=== PATIENT | female | born 1975 | race African-American/Black ===

== ENCOUNTER 2023-03-14 09:09 | Emergency (ER) | payer OTHER, SELFPAY ==
--- NOTE | ~2023-03-14 | US_ITS ---
EXAMINATION: US PELVIS CLINICAL INFORMATION: Right lower quadrant pelvic pain COMPARISON: None available. TECHNIQUE: Ultrasound of the pelvis is performed using both transabdominal and transvaginal transducers along with Doppler. Transvaginal imaging is performed due to inadequate visualization transabdominally. FINDINGS: Uterus: The uterus is anteverted and measures 13.2 x 4.6 x 6.7 cm. Uterus appears normal The double wall endometrial thickness is 15 mm. The uterus is smooth in contour and has normal myometrial echogenicity. No visible fibroid. Adnexa: Both ovaries are visualized. There is normal color flow to the adnexa. There is no ovarian torsion. There is no pelvic ascites or fluid collection. Right ovary measures 4.5 x 4.1 x 3.6 cm. There is an anechoic simple cyst measuring 3.8 x 1.1 x 3.1 cm Left ovary measures 5.4 x 3.3 x 4.2 cm. There is a anechoic simple cyst measuring 4.6 x 2.7 x 3.9 US/US pelvic ovarian doppler IMPRESSION: Bilateral simple ovarian cysts. No acute process. Findings are overwhelmingly likely to represent a benign functional cyst. No followup imaging recommended.
--- NOTE | ~2023-03-14 | CT_ITS ---
EXAMINATION: CT ABDOMEN AND PELVIS WITH CONTRAST CLINICAL INFORMATION: Right lower quadrant and right flank pain. COMPARISON: None available. TECHNIQUE: Multidetector volumetric images were obtained from the superior aspect of the liver through the pubic symphysis following administration 85 mL of Omnipaque 350 intravenous contrast. Sagittal and coronal reformatted images were obtained on the technologist's workstation. Oral contrast: No This CT examination was performed using dose optimization techniques as appropriate, variously including the following: *Automated exposure control *Adjustment of mA and/or kV according to patient size (this includes techniques or standardized protocols for targeted exams where dose is matched to indication/reason for exam; i.e. extremities or head) *Use of iterative reconstruction technique DLP: 545 mGy-cm FINDINGS: LUNG BASES: The visualized lung bases are unremarkable. LIVER, GALLBLADDER, AND BILIARY TREE: The liver is normal in size and enhances uniformly. A transient hepatic perfusion defect is present to the right of the falciform ligament in segment IVb. There is a less than 5 mm subcapsular hypodensity in the right lobe (series 3 image 25) too small to characterize further. A similar tiny lesion noted in segment 3. The gallbladder is contracted and abnormally thick-walled. There may be pericholecystic fat stranding. No definite cholelithiasis. No biliary ductal dilation. Differential considerations include cholecystitis, adenomyosis or other gallbladder wall processes. Recommend right upper quadrant ultrasound further characterize. PANCREAS: Uniform pancreatic enhancement without mass or ductal dilation. SPLEEN: Normal-sized spleen without focal lesion. ADRENAL GLANDS: No adrenal mass. KIDNEYS AND URETERS: Symmetric renal function. No hydronephrosis. No hydroureter. No perinephric fat stranding. Renal cysts noted bilaterally. No follow-up indicated. BLADDER: The bladder is largely empty. GASTROINTESTINAL TRACT: The small and large bowel are unremarkable. The appendix is unremarkable. No free air or free fluid. ABDOMINAL WALL: No significant hernia is appreciated. LYMPH NODES: Normal. VASCULAR: Unremarkable. PELVIC VISCERA: There are complicated adnexal cysts bilaterally. These most likely represent follicular cysts measuring less than 5 cm bilaterally. No solid mass seen. No CT evidence of torsion. Clinical correlation is required in this regard. The uterus is normally anteverted. The endometrial cavity is grossly normal. No pelvic free fluid or adenopathy. OSSEOUS STRUCTURES: Degenerative changes in the spine. No fracture or compression deformity. CT/CT abdomen pelvis w IV con IMPRESSION: 1. No renal calculi or hydronephrosis. 2. Bilateral adnexal cysts. No acute inflammatory changes. 3. Abnormally contracted and thickened irregular gallbladder wall. Possible pericholecystic fat stranding. Cholecystitis versus adenomyosis versus other. Recommend right upper quadrant ultrasound. Fleischner guidelines were followed.
--- NOTE | ~2023-03-14 | US_ITS ---
EXAMINATION: US ABDOMEN LIMITED CLINICAL INFORMATION: Right-sided abdominal pain. COMPARISON: CT scan of the abdomen and pelvis performed today TECHNIQUE: Real-time imaging of the right upper quadrant abdominal viscera. FINDINGS: LIVER: Visualized portions unremarkable. GALLBLADDER: Mildly distended containing gallstones measuring up to 1.3 cm. Multiple smaller gallstones are seen. There is mild mural thickening without hyperemia with Doppler interrogation. A few mural based comet tail artifact are noted. No pericholecystic fluid. COMMON BILE DUCT: Normal in caliber measuring 0.3 cm in diameter. FREE FLUID: None. US/US abdomen limited IMPRESSION: Mildly distended gallbladder demonstrated cholelithiasis without overt evidence for acute cholecystitis. If symptoms persist or worsen, short-term repeat right upper quadrant ultrasound is recommended as indicated to assess for change.
--- NOTE | ~2023-03-14 | US_ITS ---
EXAMINATION: US PELVIS CLINICAL INFORMATION: Right lower quadrant pelvic pain COMPARISON: None available. TECHNIQUE: Ultrasound of the pelvis is performed using both transabdominal and transvaginal transducers along with Doppler. Transvaginal imaging is performed due to inadequate visualization transabdominally. FINDINGS: Uterus: The uterus is anteverted and measures 13.2 x 4.6 x 6.7 cm. Uterus appears normal The double wall endometrial thickness is 15 mm. The uterus is smooth in contour and has normal myometrial echogenicity. No visible fibroid. Adnexa: Both ovaries are visualized. There is normal color flow to the adnexa. There is no ovarian torsion. There is no pelvic ascites or fluid collection. Right ovary measures 4.5 x 4.1 x 3.6 cm. There is an anechoic simple cyst measuring 3.8 x 1.1 x 3.1 cm Left ovary measures 5.4 x 3.3 x 4.2 cm. There is a anechoic simple cyst measuring 4.6 x 2.7 x 3.9 US/US pelvic and transvaginal IMPRESSION: Bilateral simple ovarian cysts. No acute process. Findings are overwhelmingly likely to represent a benign functional cyst. No followup imaging recommended.
[2023-03-14 09:25] VITALS: BP 133/69; PULSE 76; RESP 16; TEMP 36.2; O2SAT 100; BMI 29.8
[2023-03-14 09:37] LABS: Basophils Absolute Auto 0.1 X10*3/uL (0.0-0.2); Basophils Percent Auto 0.5 % (0-2); Eosinophils Absolute Auto 0.1 X10*3/uL (0.0-0.4); Eosinophils Percent Auto 0.7 % (0-4); Hematocrit 33.9 % (37.0-47.0); Hemoglobin 10.9 g/dl (12.0-16.0); Imm Gran Abs Auto 0.03 X10*3/uL (0.00-0.03); Imm Gran Pct Auto 0.3 % (0.0-0.4); Lymphocytes Absolute Auto 1.3 X10*3/uL (1.2-4.9); Lymphocytes Percent Auto 14.2 % (20-40); MANUAL DIFF FLAG NO; Mean Corpuscular HGB Conc 32.2 g/dl (31.0-35.0); Mean Corpuscular Hemoglobin 22.9 pg (27.0-33.0); Mean Corpuscular Volume 71.4 fL (80.0-98.0); Monocytes Absolute Auto 0.7 X10*3/uL (0.1-1.2); Monocytes Percent Auto 7.4 % (2-11); Neutrophils Absolute Auto 7.1 x10*3/uL (2.0-8.3); Neutrophils Percent Auto 76.9 % (45-73); Platelet Count 282 X10*3/uL (160-400); Red Blood Count 4.75 X10*6/uL (4.20-5.50); Red Cell Distribution Width 14.4 % (11.0-16.0); White Blood Count 9.2 X10*3/uL (4.8-10.8)
[2023-03-14 09:55] LABS: Alanine Aminotransferase 24 U/L (0-31); Albumin Level 4.2 g/dL (3.5-5.0); Alkaline Phosphatase 72 U/L (39-117); Anion Gap 9 (12-20); Aspartate Amino Transferase 34 U/L (5-31); Bilirubin Total 1.6 mg/dL (0.0-1.0); Blood Urea Nitrogen 10 mg/dL (9-16); Calcium 9.7 mg/dL (8.4-10.2); Carbon Dioxide 28 mmol/L (22-29); Chloride 105 mmol/L (96-108); Creatinine Clr Calc Pharmacy 88.5; Estimated Glomerular Filt Rate > 60; Glucose Random 94 mg/dL (60-115); Potassium 3.8 mmol/L (3.3-5.1); Sodium 138 mmol/L (135-145); Total Protein 6.9 g/dL (6.5-8.0)
--- OUTSIDE RECORDS SUMMARY | 2023-03-14 09:55 | XMS_ITS | Continuity of Care Document ---
Author Name Unknown Organization [facility] ter Address [address] [place] [id number]- Care Team Providers Care Traffic Checker Name Role Phone Jon GONZALEZ, Pb SAMUELS Primary Care Physician Encounter [facility] [place] Date(s): 10/22/20 - 10/22/[address] [id number]- Discharge Disposition: A-D/C Home Attending Physician: Sixto Rodriguez MD Admitting Physician: Sixto Rodriguez MD Referring Physician: Sixto Rodriguez MD Allergies, Adverse Reactions, Alerts Substance Reaction Severity Status NKA Active Medications acetaminophen-oxyCODONE 325 mg-5 mg oral tablet 1, tablet, By Mouth, Every 6 hours, for 7 days, # 28 tablet, Refills 0, Tot. Refills 0, Acute, 10/29/20 19:12:00 EST, 10/22/20 19:12:00 EST, Route to Pharmacy Electronically, [id number], Partial fill upon patient request if the prescr... Start Date: 10/22/20 Stop Date: 10/29/20 Status: Ordered FENTanyl Inj 50 mcg, Injection, IV Push Slowly, Every 5 minutes for 4 doses/times, in PACU ONLY, Hold for: RR less than 8 or over-sedation, PRN for Pain , Severe, Repeat until Pain Score is less than or equal to 2, Routine, 10/22/20 14:23:00 EST, Stop date Limited... Start Date: 10/22/20 Status: Ordered Ferrous Sulfate EC 325 mg, By Mouth, 3 x a week, Refills 0, Maintenance, 10/10/20 15:46:00 EST, Partial fill upon patient request if the prescription is for a schedule II opioid drug. Start Date: 10/10/20 Status: Ordered Vitamin D3 = 50,000 units, By Mouth, 2x week Thursday and Thu, 0 Refills, Maintenance, 10/10/20 15:46:00 EST, Partial fill upon patient request if the prescription is for a schedule II opioid drug. Start Date: 10/10/20 Status: Ordered Vital Signs Most recent to oldest [Reference Range]: 1 2 3 Height 162.56 cm (10/22/20 1:36 PM) 162.56 cm (10/10/20 3:48 PM) Weight 88.5 kg (10/22/20 1:36 PM) 85 kg (10/10/20 3:48 PM) Oxygen Saturation [94-100 %] 100 % (10/22/20 4:00 PM) 100 % (10/22/20 3:45 PM) 100 % (10/22/20 3:30 PM) Pulse Rate [55-90 bpm] 96 bpm *H* (10/22/20 1:36 PM) Body Mass Index [18.5-24.99] 33.49 *>HHI* (10/22/20 1:36 PM) 32.17 *>HHI* (10/10/20 3:48 PM) Blood Pressure [90-138/55-84 mm Hg] 139/76mm Hg *H* (10/22/20 4:00 PM) 123/67mm Hg (10/22/20 3:45 PM) 126/67mm Hg (10/22/20 3:30 PM) Respiratory Rate [16-30 br/min] 16 br/min (10/22/20 4:00 PM) 13 br/min *L* (10/22/20 3:45 PM) 14 br/min *L* (10/22/20 3:44 PM) Temperature [96.8-100.4 DegF] 98.0 DegF (10/22/20 4:00 PM) 97.9 DegF (10/22/20 3:00 PM) 98.0 DegF (10/22/20 1:36 PM) Liters per Minute 2 L/min (10/22/20 3:30 PM) 5 L/min (10/22/20 3:00 PM) Mode of Delivery (Oxygen) Room air (10/22/20 5:00 PM) Room air (10/22/20 4:30 PM) Room air (10/22/20 3:45 PM) Blood pressure sites Arm, right (10/22/20 3:00 PM) Arm, right (10/22/20 1:36 PM) Temperature Route Temporal (10/22/20 4:00 PM) Temporal (10/22/20 3:00 PM) Femoral (10/22/20 1:36 PM) Dry Weight 88.5 kg (10/22/20 1:36 PM) 85 kg (10/10/20 3:48 PM) Weight Obtained Via Standing scale (10/22/20 1:36 PM) Patient/family stated (10/10/20 3:48 PM) Dry Weight Obtained Via Standing scale (10/22/20 1:36 PM) Patient/family stated (10/10/20 3:48 PM)
--- OUTSIDE RECORDS SUMMARY | 2023-03-14 09:55 | XMS_ITS | Continuity of Care Document ---
Author Name Unknown Organization [facility] ter Address [address] [place] [id number]- Care Team Providers Care Dealer Accounts Investigator Name Role Phone Jon GONZALEZ, Pb SAMUELS Primary Care Physician [place] [facility] [place] 04/08/[address] [id number]- [facility] Encounter Diagnosis Lower GI bleed(Final) - 04/08/20 Discharge Disposition: A-D/C Home Attending Physician: Melania Holland MD Admitting Physician: Melania Holland MD Referring Physician: Not on Staff, Referring MD Allergies, Adverse Reactions, Alerts Substance Reaction Severity Status NKA Active Vital Signs Most recent to oldest [Reference Range]: 1 2 3 Oxygen Saturation [94-100 %] 100 % (04/08/20 11:04 PM) 100 % (04/08/20 10:10 PM) 100 % (04/08/20 8:22 PM) Pulse Rate [55-90 bpm] 78 bpm (04/08/20 11:04 PM) 78 bpm (04/08/20 10:10 PM) 76 bpm (04/08/20 8:22 PM) Blood Pressure [90-138/55-84 mm Hg] 134/70mm Hg (04/08/20 11:04 PM) 130/68mm Hg (04/08/20 10:10 PM) 130/63mm Hg (04/08/20 8:22 PM) Respiratory Rate [16-30 br/min] 18 br/min (04/08/20 11:04 PM) 17 br/min (04/08/20 10:10 PM) 18 br/min (04/08/20 8:22 PM) Temperature [96.8-100.4 DegF] 98.5 DegF (04/08/20 11:04 PM) 98.6 DegF (04/08/20 8:22 PM) 98.0 DegF (04/08/20 8:10 PM) Mode of Delivery (Oxygen) Room air (04/08/20 11:04 PM) Room air (04/08/20 10:10 PM) Room air (04/08/20 8:22 PM) Blood pressure sites Arm, left (04/08/20 11:04 PM) Arm, left (04/08/20 10:10 PM) Arm, left (04/08/20 8:22 PM) Temperature Route Oral (04/08/20 11:04 PM) Oral (04/08/20 8:22 PM) Oral (04/08/20 8:10 PM)
[2023-03-14 10:07] VITALS: BP 134/58; PULSE 72; RESP 16; O2SAT 100
--- NOTE | 2023-03-14 11:36 | ED.ABDPAIN ---
HPI - Abdominal Pain General Chief Complaint: Abdominal Pain Stated Complaint: N/V, lower abd pain wrapping to back, headache Time Seen by Provider: 03/14/23 09:39 Source: patient Mode of arrival: ambulatory Limitations: no limitations History of Present Illness HPI narrative: 47-year-old female who presents emergency department for evaluation of abdominal pain x2 days. 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 The pain is been constant since onset. The pain is a ?nagging ?pain which is 5/10 at its worst. She had 3 episodes of emesis and did vomit a small amount of blood. She states that she has had a headache as well since onset of the pain she took ibuprofen with only mild relief. Patient states that she had similar pain in the past with an ruptured ovarian cyst and food poisoning. She denied fever but did have chills since onset of the pain. She denied rhinorrhea, sore throat, cough, chest pain, shortness of breath. She states she had 1 loose diarrheal stool with no blood in the stool. Her last bowel movement was yesterday at 10:30. Related Data Allergies Allergy/AdvReac Type Severity Reaction Status Date / Time No Known Allergies Allergy Verified 03/14/23 09:24 Review of Systems Review of Systems Yes all other systems are reviewed and are negative [facility] Past Medical History [facility] Narrative: Past medical history: None. Past surgical history: Bilateral tubal ligation social history: She denies tobacco, alcohol and drug use. Social History Social History Alcohol intake: never Smoked in Last 30 Days: No Use of substances other than those prescribed or required for medical reasons: No Advance Directives: No Advance Directives Information Provided: Yes Physical Exam ED Vital Signs: Vital Signs - 24 hr 03/14/23 09:25 03/14/23 10:07 03/14/23 13:01 Temperature 97.1 F Pulse Rate 76 72 75 Respiratory Rate 16 16 14 Blood Pressure 133/69 134/58 L 134/58 L Pulse Oximetry 100 100 100 Oxygen Delivery Method Room Air Room Air Room Air 03/14/23 15:26 Temperature 98.7 F Pulse Rate 81 Respiratory Rate 18 Blood Pressure 139/66 Pulse Oximetry 100 Oxygen Delivery Method Room Air BMI result Body Mass Index 29.8 Const General: cooperative and no acute distress Orientation/consciousness: oriented to person and oriented to place Limitations: no limitations HENMT Head: Yes normal to inspection, Yes normocephalic and Yes atraumatic Ears: external ears normal General nose exam: Normal external nose present Face and sinus: Yes normal facial exam Mouth: Normal oral and palatal mucosa present Throat: Yes posterior oropharynx normal Eyes General: appearance normal, both eyes and all related structures Pupils: Equal, round and reactive pupils present Neck Neck: Yes normal visual inspection, Yes no lymphadenopathy, Yes trachea midline and Yes supple Chest Chest palpation & inspection: normal inspection of the chest and normal palpation of entire chest wall Resp Effort & Inspection: normal respiratory effort and able to speak in complete sentences Auscultation: clear to auscultation bilaterally Cardio Rate: regular rate Rhythm: regular rhythm Heart sounds: S1 normal heart sound present, S2 normal heart sound present and no murmurs GI Inspection: Yes normal to inspection Palpation (GI): Soft to palpation, Tenderness to palpation present (GI) in the RLQ (Moderate to severe) and suprapubicly (Mild) and no guarding Auscultation: normal bowel sounds General: Yes no CVA tenderness Back/Spine/Pelvis Back: no CVA tenderness Skin General skin exam: no rashes or lesions noted Neuro General: oriented to person and oriented to place Cranial nerves: Yes CN's II-XII intact bilaterally and Yes Equal, round and reactive pupils present Cognition (Neuro): normal cognition Motor exam (neuro): 5/5 motor strength present throughout Extrem General: Yes normal to inspection Psych Appearance: grossly normal Speech and movement: Normal speech and movement present Affect: normal affect Attitude: cooperative Medical Decision Making Medical Decision Making [facility] Narrative: 47-year-old female who presents emergency department for evaluation of right lower quadrant and right flank pain that came on suddenly yesterday at 10:30 while she was at work. Pain is been constant in 03/04 since onset, not relieved by ibuprofen. Patient had 3 episodes of emesis and 1 diarrheal stool yesterday at 10:30. The patient vital signs were normal. The patient's physical exam did reveal right lower quadrant tenderness with no CVA tenderness. Laboratory evaluation was ordered including CBC, CMP, lipase, urinalysis. I ordered Toradol 15 mg IV and Zofran 4 mg IV. Patient will also be treated with normal saline x1 L. CT scan of the abdomen pelvis with IV contrast will be obtained. 1148: Laboratory evaluation interpreted by me as follows: Microcytic anemia with an H&H of 10 and 33.9 with MCV of 71-patient has known iron deficient anemia. Elevated AST 34. Elevated bilirubin 1.6. Urinalysis trace blood, positive leukocyte esterase. Microscopic 6-10 RBCs, 21-50 WBCs greater than 20 squamous cells-this is a non clean catch specimen. CT scan of the abdomen pelvis with IV contrast revealed no renal calculi or hydronephrosis, 5 natural adnexal cyst, contracted thickened gallbladder with pericholecystic fat stranding. Given the CT scan findings I did order a pelvic duplex ultrasound to rule out torsion and right upper quadrant ultrasound. Patient's pain is significantly better after the above treatment. 1704: The patient still remains pain-free. Patient's ultrasound of her pelvis did not reveal ovarian torsion or significant cysts. The patient's ultrasound of the gallbladder did reveal gallstones but no evidence for acute cholecystitis. I did discuss this with the patient. The patient was discharged home and advised to take Tylenol ibuprofen for pain and return emergency department for symptoms got worse or she developed new symptoms that were concerning to her. Differential Diagnosis Differential diagnosis includes was not limited to appendicitis, pancreatitis, diverticulitis, renal colic, ureteral stone, hemorrhagic ovarian cyst, rupture ovarian cyst, ovarian torsion. Admission/Observation Consideration of admission/observation: Escalation of care including admission/observation considered Lab Data MDM Lab Attestation statement: I reviewed the patient's lab results. 03/14/23 09:31 03/14/23 09:31 Labs: Lab Results 03/14/23 03/14/23 03/14/23 Range/Units 09:31 09:31 12:13 WBC 9.2 (4.8-10.8) X10*3/uL RBC 4.75 (4.20-5.50) X10*6/uL Hgb 10.9 L (12.0-16.0) g/dl Hct 33.9 L (37.0-47.0) % MCV 71.4 L (80.0-98.0) fL MCH 22.9 L (27.0-33.0) pg MCHC 32.2 (31.0-35.0) g/dl RDW 14.4 (11.0-16.0) % Plt Count 282 (160-400) X10*3/uL MPV 11.0 (9.4-12.3) fL Immature Gran % (Auto) 0.3 (0.0-0.4) % Neut % (Auto) 76.9 H (45-73) % Lymph % (Auto) 14.2 L (20-40) % [place] % (Auto) 7.4 (2-11) % Eos % (Auto) 0.7 (0-4) % Baso % (Auto) 0.5 (0-2) % Lymph # (Auto) 1.3 (1.2-4.9) X10*3/uL [place] # (Auto) 0.7 (0.1-1.2) X10*3/uL Eos # (Auto) 0.1 (0.0-0.4) X10*3/uL Baso # (Auto) 0.1 (0.0-0.2) X10*3/uL Abs Immat Gran (auto) 0.03 (0.00-0.03) X10*3/uL Absolute Neuts (auto) 7.1 (2.0-8.3) x10*3/uL Absolute Nucleated RBC 0.000 (0.0-0.012) X10*3/uL Nucleated RBC % (auto) 0.0 (0.0-0.2) /100WBC Sodium 138 (135-145) mmol/L Potassium 3.8 (3.3-5.1) mmol/L Chloride 105 (96-108) mmol/L Carbon Dioxide 28 (22-29) mmol/L Anion Gap 9 L (12-20) BUN 10 (9-16) mg/dL Creatinine 0.78 (0.5-1.4) mg/dL Estim Creat Clear Calc 88.5 Estimated GFR > 60 Random Glucose 94 (60-115) mg/dL Calcium 9.7 (8.4-10.2) mg/dL Total Bilirubin 1.6 H (0.0-1.0) mg/dL AST 34 H (5-31) U/L ALT 24 (0-31) U/L Alkaline Phosphatase 72 (39-117) U/L Total Protein 6.9 (6.5-8.0) g/dL Albumin 4.2 (3.5-5.0) g/dL Lipase 19 (8-78) U/L Urine Color Yellow Urine Appearance Cloudy Urine pH 5.5 (5.0-9.0) Ur Specific [place] 1.020 (1.005-1.025) Urine Protein Trace (Neg-Trace) mg/dL Urine Glucose (UA) Negative (Negative) mg/dL Urine Ketones 15 (Negative) mg/dL Urine Blood Trace H (Negative) Urine Nitrite Negative (Negative) Ur Leukocyte Esterase Small (1+) H (Negative) Urine RBC 6-10 H (0-2) /HPF Urine WBC 21-50 H (0-5) /HPF Ur Squamous Epith Cells >20 (0-2) /HPF Urine Bacteria 4+ (None Seen) Hyaline Casts 0-2 (0-2) /LPF Independent Interpretation I performed an independent interpretation of an: Ultrasound and CT Scan Interpretation: US pelvic and transvaginal IMPRESSION: Bilateral simple ovarian cysts. No acute process. Findings are overwhelmingly likely to represent a benign functional cyst. No followup imaging recommended. Dictated By:Berny West MD US abdomen limited IMPRESSION: Mildly distended gallbladder demonstrated cholelithiasis without overt evidence for acute cholecystitis. If symptoms persist or worsen, short-term repeat right upper quadrant ultrasound is recommended as indicated to assess for change. Dictated By:Pierre Callejas MD CT abdomen pelvis w IV con IMPRESSION: 1. No renal calculi or hydronephrosis. 2. Bilateral adnexal cysts. No acute inflammatory changes. 3. Abnormally contracted and thickened irregular gallbladder wall. Possible pericholecystic fat stranding. Cholecystitis versus adenomyosis versus other. Recommend right upper quadrant ultrasound. Fleischner guidelines were followed. Dictated By:Gustabo Lara MD Radiology Impression Discussion of test interpretation with radiology: I have reviewed the radiologist's reading. Radiologist Impression: CT abdomen pelvis w IV con IMPRESSION: 1. No renal calculi or hydronephrosis. 2. Bilateral adnexal cysts. No acute inflammatory changes. 3. Abnormally contracted and thickened irregular gallbladder wall. Possible pericholecystic fat stranding. Cholecystitis versus adenomyosis versus other. Recommend right upper quadrant ultrasound. Fleischner guidelines were followed. Dictated By:Gustabo Lara MD Medications Administered Discontinued Medications Generic Name Dose Route Start Last Admin Trade Name Freq PRN Reason Stop Dose Admin Sodium Chloride 1,000 mls @ 999 mls/hr 03/14/23 11:37 03/14/23 14:06 Ns IV 03/14/23 12:37 Infused .Q1H1M STA Infusion Iohexol 100 ml 03/14/23 12:42 03/14/23 12:43 Iohexol 350 Mg/Ml 100 Ml Infus..Btl IV 03/14/23 12:43 85 ml ONCE ONE Administration Ketorolac Tromethamine 15 mg 03/14/23 11:37 03/14/23 12:08 Ketorolac Tromethamine 15 Mg/Ml Vial IVPUSH 03/14/23 11:38 15 mg ONCE STA Administration Ondansetron HCl 4 mg 03/14/23 11:37 03/14/23 12:09 Ondansetron Hcl 4 Mg/2 Ml Vial IVPUSH 03/14/23 11:38 4 mg ONCE ONE Administration Discharge Plan Discharge Clinical Impression: Right flank pain Abdominal pain Qualifiers: Abdominal location: right lower quadrant Qualified Code(s): R10.31 - Right lower quadrant pain Patient Disposition: Home, Self-Care Instructions: Abdominal Pain (ED) Additional Instructions: Your blood work was unremarkable except for mild anemia. Your urinalysis was contaminated with skin cells but your asymptomatic and I do not think that you have a urinary tract infection is the cause of your symptoms. The CT scan of your abdomen pelvis did reveal small ovarian cysts and a contracted gallbladder. The ultrasounds however revealed no significant ovarian cysts and gallstones in your gallbladder with no inflammation of your gallbladder. At this time, I do not have a clear cause for your pain. If you developed a rash in the area where the pain then you should talk to your doctor about shingles or return to the emergency department to be evaluated for shingles. Take ibuprofen 200 mg pills, 2 pills every 6 hours as needed for pain. Take Tylenol (acetaminophen) 500 mg pills, 2 pills every 6 hours as needed for pain. Follow-up with your doctor in 2 days. Please return to the emergency department if your symptoms get worse or if you develop any symptoms that are concerning to you.
[2023-03-14] MEDS: 0.9 % Sodium Chloride 1,000 ML 999 ML IV (12:01)
[2023-03-14] MEDS: Ketorolac Tromethamine 15 MG/ML VIAL IVPUSH (12:08)
[2023-03-14] MEDS: ondansetron HCL 4 MG/2 ML VIAL IVPUSH (12:09)
--- NOTE | 2023-03-14 12:10 | PC.NURSE ---
medicated per mar. awaiting ct scan
[2023-03-14 12:12] LABS: Lipase 19 U/L (8-78)
[2023-03-14 12:23] LABS: Appearance Urine Cloudy; Color Urine Yellow; Glucose Urine UA Negative (Negative); Leukocyte Esterase Urine Small (1+) (Negative); Nitrite Urine Negative (Negative); PH 5.5 (5.0-9.0); UMIC TRIGGER UACC YES; Urine Blood Trace (Negative); Urine Ketones 15 mg/dL (Negative); Urine Protein Trace mg/dL (Neg-Trace)
[2023-03-14] MEDS: iohexoL 350 MG/ML 100 ML INFUS..BTL IV (12:43)
--- NOTE | 2023-03-14 12:44 | PC.NURSE ---
urine sent to lab.
[2023-03-14 12:47] LABS: Bacteria Urine 4+ (None Seen); Hyaline Casts Urine 0-2 /LPF (0-2); Squamous Epithelial Cell Urine >20 /HPF (0-2); UACC Culture Trigger YES; WBC Urine 21-50 /HPF (0-5)
[2023-03-14 13:01] VITALS: BP 134/58; PULSE 75; RESP 14; O2SAT 100
--- NOTE | 2023-03-14 14:06 | PC.NURSE ---
pt resting, reports no pain. will ctm
--- NOTE | 2023-03-14 15:09 | PC.NURSE ---
pt to ultrasound
[2023-03-14 15:26] VITALS: BP 139/66; PULSE 81; RESP 18; TEMP 37.1; O2SAT 100
--- NOTE | 2023-03-14 16:58 | PC.NURSE ---
pt resting, no apparent distress. reports no pain. will ctm
== END 2023-03-14 17:10 | disposition home or self-care (01) ==
PROVIDERS: Emergency Provider Emergency Medicine Emergency Medical Services; PCP Internal Medicine
DX: R10.31 Right lower quadrant pain (principal); R10.9 Unspecified abdominal pain
CPT/HCPCS: 36415; 74177; 76705; 76830; 76856; 80053; 81001; 83690; 85025; 87086; 87088; 87186; 93975; 96361; 96374; 96375; 99284; J1885; J2405; Q9967

== ENCOUNTER 2023-12-05 12:08 | Emergency (ER) | payer OTHER, SELFPAY ==
--- NOTE | 2023-12-05 | ECG_ITS ---
Test Reason : CP Blood Pressure : / mmHG Vent. Rate : 079 BPM Atrial Rate : 079 BPM P-R Int : 132 ms QRS Dur : 080 ms QT Int : 356 ms P-R-T Axes : 060 038 039 degrees QTc Int : 408 ms Normal sinus rhythm Normal ECG No previous ECGs available Referred By: Generic ED Physician Electronically Signed By:MELI BRANDON
--- NOTE | ~2023-12-05 | XR_ITS ---
EXAMINATION: XR CHEST CLINICAL INFORMATION: SOB x1 day. Recent ingestion. COMPARISON: None available. TECHNIQUE: 2 views of the chest were obtained. FINDINGS: No significant abnormality is noted involving the heart, lungs, mediastinum, bony thorax or soft tissues. XR/XR chest 2V IMPRESSION: Unremarkable chest examination.
--- NOTE | 2023-12-05 12:22 | ED_ITS ---
HPI - General Adult General Chief complaint: Chest Pain Stated complaint: SOB/Chest pain/Feels numb Time Seen by Provider: 12/05/23 12:58 Source: patient Mode of arrival: ambulatory Limitations: no limitations History of Present Illness HPI narrative: Patient is a 48-year-old female presenting to the emergency department with complaint of episode of substernal chest pain, shortness of breath, lightheadedness and excessive salivation approximately 50 minutes prior to arrival. Patient reports that she was on a work phone call at home when her symptoms began. Reports her episode of chest pain lasted approximately 3 minutes and have not reoccurred. She does complain of ongoing sensation of shortness of breath. Reports nausea associated with episode as well as numbness/tingling to bilateral arms which has since resolved. Denies vomiting, diarrhea, or abdominal pain. Reports family history of PEs for mother, father, and sister. Denies recent calf pain or swelling. Denies any lower extremity edema. MD complaint: chest pain, dyspnea Onset (ago): hour(s) Location: chest Radiation: non-radiation Severity: moderate Quality: sharp Pain Consistency: now resolved Relieving factors: none Exacerbating factors: none Associated symptoms: nausea/vomiting and shortness of breath Treatments prior to arrival: none Related Data Allergies Allergy/AdvReac Type Severity Reaction Status Date / Time No Known Allergies Allergy Verified 12/05/23 12:24 Review of Systems 2 Review of Systems: As per HPI Yes all other systems are reviewed and are negative Constitutional: Constitutional: Reports as per HPI ON LICENSE OF [facility] Social History Social History Alcohol intake: never Smoked in Last 30 Days: No Use of substances other than those prescribed or required for medical reasons: No Advance Directives: No Physical Exam ED Vital Signs: Vital Signs - 24 hr 12/05/23 12:23 12/05/23 12:56 12/05/23 14:00 Temperature 98.6 F Pulse Rate 77 87 74 Respiratory Rate 20 18 18 Blood Pressure 152/80 H Pulse Oximetry 100 99 100 Oxygen Delivery Method Room Air Room Air Room Air BMI result Body Mass Index 29.3 Vital signs have been reviewed and appear to be correct. Blood pressure elevated. Heart rate normal. Respiratory rate normal. Temperature normal. Oxygen saturation normal. Const General: cooperative, healthy appearing and no acute distress Orientation/consciousness: oriented to person, oriented to place, oriented to time and patient oriented x3 Limitations: no limitations HENMT Head: Yes normocephalic and Yes atraumatic Ears: external ears normal General nose exam: Normal external nose present Face and sinus: Yes face symmetric Mouth: oropharynx normal and moist mucous membranes Throat: Yes uvula midline Eyes Pupils: Equal, round and reactive pupils present Neck Neck: Yes normal visual inspection and Yes supple Resp Effort & Inspection: normal respiratory effort and able to speak in complete sentences Auscultation: clear to auscultation bilaterally Cardio Rate: regular rate Rhythm: regular rhythm Heart sounds: S1 normal heart sound present and S2 normal heart sound present GI Palpation (GI): Soft to palpation and nontender Auscultation: normoactive bowel sounds General: Yes no CVA tenderness Back/Spine/Pelvis Back: no CVA tenderness Skin General skin exam: elasticity normal and turgor normal Neuro General: oriented to person, oriented to place, oriented to time, patient oriented x3, moves all extremities, no focal motor deficits and CN's II-XI intact bilaterally Cranial nerves: Yes Equal, round and reactive pupils present Cognition (Neuro): normal cognition Extrem General: Yes full ROM, Yes no pedal edema and Yes no calf tenderness Psych Mental Status: mental status grossly normal Affect: normal affect Thought process: Normal thought process present Course Course Course Narrative: This is an RME: Additional HPI, ROS, PE not included below will be deferred to primary provider. 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 Reports a history of similar symptoms occurring February 2023 with unknown etiology after workup in the emergency department. Plan: labs, EKG Reevaluation(s) Reevaluation #1: [id number]-I received sign out on this patient pending a repeat troponin level with anticipation for discharge home if normal. And presented with a transient episode of chest pain which is resolved. Her initial troponin was negative. Her repeat troponin was negative. Her EKG was nonischemic. Her labs including D-dimer were unremarkable. I went to speak to the patient. She has no complaints of chest pain. She is feeling comfortable. Plans for discharge home. Reviewed worrisome signs and symptoms of when to return to the emergency room. Medications Administered Discontinued Medications Generic Name Dose Route Start Last Admin Trade Name Freq PRN Reason Stop Dose Admin Aspirin 243 mg 12/05/23 13:32 12/05/23 13:33 Aspirin 81 Mg Tab.Chew PO 12/05/23 13:33 243 mg ONCE ONE Administration Medical Decision Making Medical Decision Making [facility] Narrative: Patient is a 48-year-old female presenting to the emergency department with complaint of episode of substernal chest pain, shortness of breath, lightheadedness and excessive salivation approximately 50 minutes prior to arrival. On exam patient is awake, A+Ox3, BP elevated, VS otherwise WNL, afebrile, normal neurological exam without focal deficits, physical exam findings as above. Given reported symptoms and physical exam findings, initial differential includes ACS, GERD, musculoskeletal pain, viral illness, Covid, flu, pneumonia. Unlikely PE, negative wells, given family history will obtain D-dimer. Labs notable for no leukocytosis, chronic microcytic anemia, no significant electrolyte abnormalities, negative troponin, negative D-dimer. X-ray chest notable for no evidence of pneumonia. My interpretation is in agreement with the radiologist's interpretation. HEART score 1. EKG shows normal sinus rhythm. Patient signed out to SARA Almeida pending repeat troponin, if no delta likely discharge home. Differential Diagnosis Differential Diagnoses: The differential diagnosis associated with the presentation includes As per MDM. Admission/Observation Consideration of admission/observation: Escalation of care including admission/observation considered Lab Data [facility] Lab Attestation statement: I reviewed the patient's lab results. As per MDM. 12/05/23 12:31 12/05/23 12:31 Labs: Lab Results 12/05/23 12/05/23 12/05/23 Range/Units 12:31 14:42 15:57 WBC 7.1 (4.8-10.8) X10*3/uL RBC 5.16 (4.20-5.50) X10*6/uL Hgb 11.8 L (12.0-16.0) g/dl Hct 37.0 (37.0-47.0) % MCV 71.7 L (80.0-98.0) fL MCH 22.9 L (27.0-33.0) pg MCHC 31.9 (31.0-35.0) g/dl RDW 14.1 (11.0-16.0) % Plt Count 289 (160-400) X10*3/uL MPV 11.9 (9.4-12.3) fL Immature Gran % (Auto) 0.3 (0.0-0.4) % Neut % (Auto) 74.1 H (45-73) % Lymph % (Auto) 17.1 L (20-40) % Mcdowell % (Auto) 6.2 (2-11) % Eos % (Auto) 1.7 (0-4) % Baso % (Auto) 0.6 (0-2) % Lymph # (Auto) 1.2 (1.2-4.9) X10*3/uL Mcdowell # (Auto) 0.4 (0.1-1.2) X10*3/uL Eos # (Auto) 0.1 (0.0-0.4) X10*3/uL Baso # (Auto) 0.0 (0.0-0.2) X10*3/uL Abs Immat Gran (auto) 0.02 (0.00-0.03) X10*3/uL Absolute Neuts (auto) 5.2 (2.0-8.3) x10*3/uL Absolute Nucleated RBC 0.000 (0.0-0.012) X10*3/uL Nucleated RBC % (auto) 0.0 (0.0-0.2) /100WBC PT 11.9 (11.1-13.3) SEC INR 1.0 (0.9-1.1) D-Dimer High Sensitivty < 150 NG/ML Sodium 139 (135-145) mmol/L Potassium 4.3 (3.3-5.1) mmol/L Chloride 105 (96-108) mmol/L Carbon Dioxide 27 (22-29) mmol/L Anion Gap 11 L (12-20) BUN 8 L (9-16) mg/dL Creatinine 0.81 (0.5-1.4) mg/dL Estim Creat Clear Calc 83.7 Estimated GFR > 60 Random Glucose 87 (60-115) mg/dL Calcium 9.6 (8.4-10.2) mg/dL Magnesium 2.1 (1.6-2.6) mg/dL Total Bilirubin 0.7 (0.0-1.0) mg/dL AST 16 (5-31) U/L ALT 10 (0-31) U/L Alkaline Phosphatase 69 (39-117) U/L Troponin I High Sens < 2.7 < 2.7 (<3.5-17.0) ng/L Total Protein 7.3 (6.5-8.0) g/dL Albumin 4.2 (3.5-5.0) g/dL Urine Color RED Urine Appearance Turbid Urine pH 6.0 (5.0-9.0) Ur Specific Rogers 1.020 (1.005-1.025) Urine Protein 300 (3+) H (Neg-Trace) mg/dL Urine Glucose (UA) Negative (Negative) mg/dL Urine Ketones Negative (Negative) mg/dL Urine Blood Large (3+) H (Negative) Urine Nitrite Negative (Negative) Ur Leukocyte Esterase Trace H (Negative) Urine RBC >20 H (0-2) /HPF Urine WBC 6-10 H (0-5) /HPF Ur Squamous Epith Cells 0-2 (0-2) /HPF Urine Bacteria None Seen (None Seen) Hyaline Casts 0-2 (0-2) /LPF COVID-19 (JEAN) Negative (Negative) COVID-19 Clin Com See Note Influenza Type A (RADHA) Negative (Negative) Influenza Type B (RADHA) Negative (Negative) Influenza A & B Note See Note Independent Interpretation I performed an independent interpretation of an: Plain X-Ray Interpretation: Evidence of pneumonia, cardiomegaly Radiology Impression Discussion of test interpretation with radiology: I have reviewed the radiologist's reading. Radiologist Impression: XR/XR chest 2V IMPRESSION: Unremarkable chest examination. External Record Review External record reviewed: Inpatient record, Office record and Outpatient record Scores Heart Score History: -0- slightly suspicious ECG: -0- normal Age: -1- >45 - <65 Risk factory: -0- no risk factors known Troponin: -0- < or = normal limit Score: 1 Risk: 1.7% Discharge Plan Discharge Clinical Impression: Atypical chest pain Patient Disposition: Still a Patient Instructions: Chest Pain (DC) Additional Instructions: You were evaluated in the emergency department today for chest pain. Your evaluation has shown no signs of medical conditions requiring emergent intervention at this time, however we recommend that you follow-up with your primary care physician as soon as possible. Return to the emergency department if you experience worsening or uncontrolled chest pain, shortness of breath, lightheadedness, feeling faint, loss of consciousness, nausea, vomiting, or any other concerning symptoms.
[2023-12-05 12:23] VITALS: BP 152/80; PULSE 77; RESP 20; TEMP 37; O2SAT 100; BMI 29.3
[2023-12-05 12:37] LABS: MANUAL DIFF FLAG NO
[2023-12-05 12:38] LABS: Basophils Percent Auto 0.6 % (0-2); Eosinophils Absolute Auto 0.1 X10*3/uL (0.0-0.4); Eosinophils Percent Auto 1.7 % (0-4); Hemoglobin 11.8 g/dl (12.0-16.0); Imm Gran Abs Auto 0.02 X10*3/uL (0.00-0.03); Imm Gran Pct Auto 0.3 % (0.0-0.4); Lymphocytes Absolute Auto 1.2 X10*3/uL (1.2-4.9); Lymphocytes Percent Auto 17.1 % (20-40); Mean Corpuscular HGB Conc 31.9 g/dl (31.0-35.0); Mean Corpuscular Hemoglobin 22.9 pg (27.0-33.0); Mean Corpuscular Volume 71.7 fL (80.0-98.0); Mean Platelet Volume 11.9 fL (9.4-12.3); Monocytes Absolute Auto 0.4 X10*3/uL (0.1-1.2); Monocytes Percent Auto 6.2 % (2-11); Neutrophils Absolute Auto 5.2 x10*3/uL (2.0-8.3); Neutrophils Percent Auto 74.1 % (45-73); Platelet Count 289 X10*3/uL (160-400); Red Blood Count 5.16 X10*6/uL (4.20-5.50); Red Cell Distribution Width 14.1 % (11.0-16.0); White Blood Count 7.1 X10*3/uL (4.8-10.8)
[2023-12-05 12:47] LABS: Prothrombin Time 11.9 SEC (11.1-13.3)
[2023-12-05 12:51] LABS: COVID-19 Test Negative (Negative); IDNOW Serial# 6674DD1D
--- OUTSIDE RECORDS SUMMARY | 2023-12-05 12:53 | XMS_ITS | Continuity of Care Document ---
Author Name Unknown Organization [facility] ter Address [address] [place] [id number] Care Team Providers Care Cyber Security Analyst Name Role Phone Jon GONZALEZ, Pb SAMUELS Primary Care Physician Unava ilable Encounter [facility] Date(s): 03/13/23 - 03/14/[address] [id number]- Discharge Disposition: A-D/C Walkout Attending Physician: Not on Staff, Attending MD Admitting Physician: Not on Staff, Admitting MD Referring Physician: Not on Staff, Referring MD Allergies, Adverse Reactions, Alerts No Known Allergies Medications Ferrous Sulfate EC 325 mg, By Mouth, [...] 3 Oxygen Saturation [94-100 %] 100 % (03/13/23 11:10 PM) 100 % (03/13/23 8:31 PM) 99 % (03/13/23 5:48 PM) Pulse Rate [55-90 bpm] 77 bpm (03/13/23 11:10 PM) 73 bpm (03/13/23 8:31 PM) 80 bpm (03/13/23 5:48 PM) Blood Pressure [90-138/55-84 mm Hg] 154/73mm Hg *H* (03/13/23 11:10 PM) 116/77mm Hg (03/13/23 8:31 PM) 141/68mm Hg *H* (03/13/23 5:48 PM) Respiratory Rate [16-30 br/min] 19 br/min (03/13/23 2:54 PM) Temperature [96.8-100.4 DegF] 97.8 DegF (03/13/23 11:10 PM) 98.3 DegF (03/13/23 8:31 PM) 98.4 DegF (03/13/23 5:48 PM) Mode of Delivery (Oxygen) Room air (03/13/23 11:10 PM) Room air (03/13/23 8:31 PM) Room air (03/13/23 5:48 PM) Blood pressure sites Arm, right (03/13/23 11:10 PM) Arm, right (03/13/23 8:31 PM) Arm, right (03/13/23 5:48 PM) Temperature Route Oral (03/13/23 11:10 PM) Oral (03/13/23 8:31 PM) Oral (03/13/23 5:48 PM) Patient Care team information Care Team Personnel Name: Jon GONZALEZ, Pb SAMUELS Position: Reference Physician Member Role: PCP Address: Address: [address] [place] [address]- Care Team Related Persons Name: GURUALCIDESMercedes Address: home [address] [place] [id number]
[2023-12-05 12:56] VITALS: PULSE 87; RESP 18; O2SAT 99
[2023-12-05 12:56] LABS: Alanine Aminotransferase 10 U/L (0-31); Albumin Level 4.2 g/dL (3.5-5.0); Alkaline Phosphatase 69 U/L (39-117); Anion Gap 11 (12-20); Aspartate Amino Transferase 16 U/L (5-31); Bilirubin Total 0.7 mg/dL (0.0-1.0); Blood Urea Nitrogen 8 mg/dL (9-16); Calcium 9.6 mg/dL (8.4-10.2); Carbon Dioxide 27 mmol/L (22-29); Chloride 105 mmol/L (96-108); Creatinine Clr Calc Pharmacy 83.7; Estimated Glomerular Filt Rate > 60; Glucose Random 87 mg/dL (60-115); Magnesium 2.1 mg/dL (1.6-2.6); Potassium 4.3 mmol/L (3.3-5.1); Sodium 139 mmol/L (135-145); Total Protein 7.3 g/dL (6.5-8.0)
--- NOTE | 2023-12-05 12:57 | PC.NURSE ---
Patient reports chest pain, sob, and dizziness that started while seated at work this morning. Reports the pain as chest tightness, sob with exertion and clogged ears x 1 week. denies headache or abdominal pain
[2023-12-05 13:06] LABS: Troponin-I High Sensitivity < 2.7 ng/L (<3.5-17.0)
[2023-12-05 13:09] LABS: IDNOW Serial# 6674DD1D; Influenza A Negative (Negative); Influenza B2 Negative (Negative)
[2023-12-05] MEDS: Aspirin 81 MG TAB.CHEW 243 MG PO (13:33)
[2023-12-05 13:38] LABS: D Dimer High Sensitivity < 150 NG/ML
[2023-12-05 14:00] VITALS: PULSE 74; RESP 18; O2SAT 100
[2023-12-05 14:56] LABS: Appearance Urine Turbid; Color Urine RED; Glucose Urine UA Negative (Negative); Leukocyte Esterase Urine Trace (Negative); Nitrite Urine Negative (Negative); UMIC TRIGGER UACC YES; Urine Blood Large (3+) (Negative); Urine Ketones Negative (Negative); Urine Protein 300 (3+) mg/dL (Neg-Trace)
[2023-12-05 15:17] LABS: RBC Urine >20 /HPF (0-2); UACC Culture Trigger YES
[2023-12-05 15:18] LABS: Bacteria Urine None Seen (None Seen); Hyaline Casts Urine 0-2 /LPF (0-2); Squamous Epithelial Cell Urine 0-2 /HPF (0-2)
[2023-12-05 16:22] LABS: Troponin-I High Sensitivity < 2.7 ng/L (<3.5-17.0)
== END 2023-12-05 17:00 | disposition home or self-care (01) ==
PROVIDERS: Nurse Practitioner Family; Registered Nurse Emergency; Emergency Provider Emergency Medicine; PCP Internal Medicine
DX: R07.89 Other chest pain (principal); R06.02 Shortness of breath; Z11.52 Encounter for screening for COVID-19; R20.2 Paresthesia of skin; R42 Dizziness and giddiness; D50.9 Iron deficiency anemia, unspecified
CPT/HCPCS: 36415; 71046; 80053; 81001; 83735; 84484; 85025; 85379; 85610; 87086; 87502; 87635; 93005; 99283; 99285

== ENCOUNTER → 2023-12-05 12:11 | Outpatient (BNV) | payer OTHER, SELFPAY | PROVIDERS: Emergency Provider Emergency Medicine; PCP Internal Medicine; Visit Provider Internal Medicine | DX: R07.9 Chest pain, unspecified (principal) | CPT/HCPCS: 93010 ==